=== PATIENT | male | born 1955 | race Hispanic/Latino ===

== ENCOUNTER 2019-07-28 19:58 | Emergency (ER) | payer BC, OTHER ==
[~2019-07-28] VITALS: Ht 188 cm; Wt 90.7 kg
[2019-07-28] MEDS: SODIUM CHLORIDE 0.9% 1000ML 1,000 ML IV ONE (21:30)
[2019-07-28] MEDS ORDERED: SODIUM CHLORIDE 0.9% 1000ML 1,000 ML ONE (21:32)
--- NOTE | 2019-07-28 22:07 | Diagnostic Imaging Report ---
EXAM: CT Abdomen and Pelvis WITHOUT contrast INDICATION: Abdominal pain, nausea, bodyaches. COMPARISON: None. TECHNIQUE: Abdomen and pelvis were scanned utilizing a multidetector helical scanner from the lung base to the pubic symphysis without administration of IV contrast. Absence of intravenous contrast decreases sensitivity for detection of focal lesions and vascular pathology. Coronal and sagittal reformations were obtained. Routine protocol was performed. IV CONTRAST: None. ORAL CONTRAST: None. RADIATION DOSE: Total DLP: 966.8 mGy*cm Estimated effective dose: (DLP x 0.015 x size factor) mSv COMPLICATIONS: None FINDINGS: LINES and TUBES: None. LOWER THORAX: There are multifocal patchy nodular groundglass opacities in the visualized lower lungs. Scattered nodular opacities, measuring up to 7 mm in the right lower lobe on series 2, image 4. HEPATOBILIARY: No evidence of focal hepatic lesions. No biliary ductal dilation. GALLBLADDER: Decompressed. No radio-opaque stones or sludge. No wall thickening. SPLEEN: No splenomegaly. PANCREAS: No evidence of focal masses or ductal dilatation. ADRENALS: No adrenal nodules KIDNEYS/URETERS: Likely bilateral parapelvic cysts. No definite hydronephrosis. No evidence of stone. GI TRACT: No abnormal distention, wall thickening, or evidence of bowel obstruction. Appendix is not clearly identified. There is however no fat stranding or adenopathy in the right lower quadrant to suggest appendicitis. Scattered colonic diverticulosis without evidence of diverticulitis. Moderate amount of stool in the colon. PELVIC ORGANS/BLADDER: Unremarkable. LYMPH NODES: No lymphadenopathy. VESSELS: There is mild atherosclerotic disease in the aorta and major arterial branches. PERITONEUM / RETROPERITONEUM: No free air or fluid. BONES: Unremarkable. SOFT TISSUES: Right greater than left fat-containing inguinal hernias. IMPRESSION: Multifocal groundglass / nodular opacities in the lower lungs, compatible with atypical pneumonia. Recommend clinical correlation. Suggest follow-up chest CT in 3 months to assess for resolution. Scattered colonic diverticulosis without diverticulitis. Moderate amount of stool in the colon. Signed by: Dr. Ilia Faith MD on 07/28/2019 10:04 PM
[2019-07-28] MEDS: INSULIN REGULAR, HUMAN 100 UNIT/1 ML 3ML VIAL SQ ONE (22:10)
--- NOTE | 2019-07-28 23:18 | Diagnostic Imaging Report ---
EXAMINATION: CXR 2 VIEW - HOPD INDICATION: Incidental findings on ct of abdomen COMPARISON: CT abdomen/pelvis 07/28/2019. FINDINGS: TUBES and LINES: None. LUNGS: Lungs are well inflated. There are patchy opacities in the lower lung zones, right greater than left. PLEURA: No pleural effusion or pneumothorax. HEART AND MEDIASTINUM: The cardiomediastinal silhouette is unremarkable. BONES AND SOFT TISSUES: No acute osseous lesion. Soft tissues are unremarkable. UPPER ABDOMEN: No free air under the diaphragm. IMPRESSION: Patchy lower lung zone opacities, right greater than left, compatible with pneumonia seen on same day abdominal CT. Signed by: Dr. Ilia Faith MD on 07/28/2019 11:15 PM
[2019-07-28 23:50] VITALS: BP 155/86
[2019-07-29] MEDS ORDERED: INSULIN REGULAR, HUMAN 100 UNIT/1 ML 3ML VIAL ONE (01:50)
== END 2019-07-28 23:55 | disposition home or self-care (01) ==
LOC: FSED 19:58
DX: R11.2 Nausea with vomiting, unspecified (principal); E86.0 Dehydration; E11.65 Type 2 diabetes mellitus with hyperglycemia; I10 Essential (primary) hypertension; E78.5 Hyperlipidemia, unspecified
CPT/HCPCS: 71046; 74176; 80048; 80076; 81003; 82553; 85025; 87400; 99284; J7030; J1817

== ENCOUNTER 2021-05-26 10:42 | Emergency (ER) | payer BC, OTHER ==
[~2021-05-26] VITALS: Ht 188 cm; Wt 90.7 kg
[2021-05-26 11:53] LABS: BASOPHILS % 0.6 % (0.0-1.0); EOSINOPHILS # (AUTO) 0.1 (0.0-0.4); EOSINOPHILS % 1.6 % (0.0-6.0); HEMATOCRIT 40.8 % (38.2-49.6); HEMOGLOBIN 13.3 g/dL (14.0-18.0); LYMPHOCYTES # (AUTO) 1.1 (1.0-3.2); LYMPHOCYTES % 16.4 % (18.0-39.1); MEAN CORPUSCULAR HEMOGLOBIN 29.2 pg (28-32); MEAN CORPUSCULAR HGB CONC 32.6 g/dL (31-35); MEAN CORPUSCULAR VOLUME 89.7 fL (81-99); MONOCYTES # (AUTO) 0.4 (0.2-0.8); MONOCYTES % 6.4 % (4.4-11.3); NEUTROPHILS # (AUTO) 5.1 (2.1-6.9); NEUTROPHILS % 74.4 % (38.7-80.0); PLATELET COUNT 233 x10e3/uL (140-360); RED BLOOD COUNT 4.55 x10e6/uL (4.3-5.7); RED CELL DISTRIBUTION WIDTH 11.5 % (11.7-14.4)
[2021-05-26] MEDS ORDERED: SODIUM CHLORIDE 0.9% 500ML 500 ML IV ONE (12:00)
[2021-05-26 12:16] LABS: ALBUMIN 3.4 g/dL (3.5-5.0); ALBUMIN/GLOBULIN RATIO 0.9 (0.8-2.0); ANION GAP 11.9 mmol/L (8-16); CALCIUM 9.4 mg/dL (8.4-10.2); CREATININE, SERUM 1.61 mg/dL (0.72-1.25); POTASSIUM 4.9 mmol/L (3.5-5.1)
[2021-05-26] MEDS ORDERED: SODIUM CHLORIDE 0.9% 1000ML 1,000 ML IV STA (12:28)
[2021-05-26] MEDS ORDERED: INSULIN REGULAR, HUMAN 100 UNIT/1 ML IV ONE (12:30)
[2021-05-26 15:30] VITALS: BP 144/82
== END 2021-05-26 15:48 | disposition home or self-care (01) ==
LOC: ER 11:42
DX: L97.511 Non-pressure chronic ulcer of other part of right foot limited to breakdown of skin (principal); I10 Essential (primary) hypertension; E11.9 Type 2 diabetes mellitus without complications; Z88.8 Allergy status to other drugs, medicaments and biological substances; L03.115 Cellulitis of right lower limb
CPT/HCPCS: 36415; 80053; 82948; 85025; 99284; J7030; J7040

== ENCOUNTER 2022-11-14 14:41 | Emergency (ER) | payer OTHER ==
[~2022-11-14] VITALS: Ht 188 cm; Wt 90.7 kg
[2022-11-14 14:41] VITALS: O2SAT 100
== END 2022-11-14 16:08 | disposition home or self-care (01) ==
LOC: ER 14:49
DX: E11.621 Type 2 diabetes mellitus with foot ulcer (principal); L97.428 Non-pressure chronic ulcer of left heel and midfoot with other specified severity; I10 Essential (primary) hypertension; Z90.2 Acquired absence of lung [part of]; Z88.8 Allergy status to other drugs, medicaments and biological substances; Z89.511 Acquired absence of right leg below knee
CPT/HCPCS: 99283

== ENCOUNTER 2024-09-21 16:48 | Emergency (ER) | payer MEDICARE, OTHER ==
[~2024-09-21] VITALS: Ht 188 cm; Wt 97.5 kg
[2024-09-21 17:15] VITALS: PULSE 83; RESP 18; TEMP 98.1; O2SAT 99
[2024-09-21] MEDS: TETANUS/DIPHTHERIA TOX ADULT 0.5 ML SYR IM ONE (18:04)
[2024-09-21] MEDS ORDERED: SYNJARDY XR 251 EACH (20:15)
[2024-09-21] MEDS ORDERED: LISINOPRIL10 MG PO (20:15)
[2024-09-21] MEDS ORDERED: LEVEMIR SQ (20:15)
[2024-09-21] MEDS ORDERED: METFORMIN HCL500 M2 PO (20:15)
[2024-09-21] MEDS ORDERED: ATORVASTATIN CA20 MG PO (20:15)
== END 2024-09-21 17:52 | disposition home or self-care (01) ==
LOC: FSED 16:59
DX: Z48.01 Encounter for change or removal of surgical wound dressing (principal); S81.802A Unspecified open wound, left lower leg, initial encounter; Z89.512 Acquired absence of left leg below knee; Z89.511 Acquired absence of right leg below knee; I10 Essential (primary) hypertension; E11.9 Type 2 diabetes mellitus without complications
CPT/HCPCS: 90471; 90714; 96372; 99283